=== PATIENT | male | born 1970 | race Caucasian/White ===

== ENCOUNTER 2018-08-26 09:49 | Day surgery (SDC) | payer OTHER ==
[2018-08-25 15:38] VITALS: BMI 22.4
[2018-08-26 11:55] VITALS: TEMP 98.1
[2018-08-26 12:23] VITALS: BP 102/54; PULSE 80
--- NOTE | 2018-08-27 12:30 | PATH ---
Surgical Pathology Report Patient Name: NAHUM TORRES [facility]. Rec. #: [id number] /Age/Gender: 1970 (Age: 48) / M Account: [id number] Location: [facility]-ENDOSCOPY Taken: 08/26/2018 Received: 08/26/2018 Reported: 08/27/2018 Physicians: Panfilo Lucero D.O. Specimen(s) Received A: SPLENIC FLEXURE, POLYP B: TRANSVERSE COLON, POLYP C: HEPATIC FLEXURE, POLYP D: DESCENDING COLON, POLYP Clinical History Rectal bleeding Postoperative diagnosis: Colon polyps, hemorrhoids Final Diagnosis A. SPLENIC FLEXURE, POLYP, POLYPECTOMY: TUBULAR ADENOMA. B. TRANSVERSE COLON, POLYP, POLYPECTOMY: TUBULOVILLOUS ADENOMA. C. HEPATIC FLEXURE, POLYP, POLYPECTOMY: TUBULAR ADENOMA. D. DESCENDING COLON, POLYP, POLYPECTOMY: TUBULAR ADENOMA, CAUTERIZED. Electronically Signed Eloisa Felix M.D. Gross Description A. Received in formalin, labeled "polyp splenic flexure" is a pratt, irregular portion of soft tissue measuring 0.4 cm. in greatest dimension. The specimen is submitted in toto in one cassette. B. Received in formalin, labeled "polyp transverse colon" is a pratt, polypoid portion of soft tissue measuring 0.8 cm. in greatest dimension. The specimen is submitted in toto in one cassette. C. Received in formalin, labeled "polyp hepatic flexure" are 2 pratt, irregular portions of soft tissue measuring 0.1 and 0.3 cm. in greatest dimension. The specimens are submitted in toto in one cassette. D. Received in formalin, labeled "polyp descending colon" is a pratt, irregular portion of soft tissue measuring 0.3 cm. in greatest dimension. The specimen is submitted in toto in one cassette. 08/26/2018 saudi08/26/2018
== END 2018-08-26 12:46 | disposition home or self-care (01) ==
LOC: JASU-ENDO 09:49
PROVIDERS: ATTEND Internal Medicine Gastroenterology
PROC: 0DBL8ZX Excision of Transverse Colon, Via Natural or Artificial Opening Endoscopic, Diagnostic (ICD-10-PCS; 2018-08-26)
PROC: 0DBM8ZX Excision of Descending Colon, Via Natural or Artificial Opening Endoscopic, Diagnostic (ICD-10-PCS; principal; 2018-08-26 10:15)
DX: D12.4 Benign neoplasm of descending colon (principal); D12.3 Benign neoplasm of transverse colon; K64.8 Other hemorrhoids; K92.1 Melena
CPT/HCPCS: 88305-TC

== ENCOUNTER 2019-05-31 13:33 | Emergency (ER) | payer OTHER ==
[2019-05-31 14:04] VITALS: BMI 21.0
--- NOTE | 2019-05-31 15:24 | PDOC ---
History of Present Illness - General Chief Complaint: Hemorrhoids Stated Complaint: RECTAL BLEEDING/PAIN Time Seen by Provider: 05/31/19 14:53 History Source: Patient, Family Exam Limitations: No Limitations - History of Present Illness Initial Comments: 05/31/19 15:24 Frederick Gandhi is a 48M with PMH rectal prolapse presenting with rectal pain. Patient had diarrhea 4 days HOBBER, noticed worsening rectal pain after one night. Diarrhea stopped after taking Imodium, but rectal prolapse significantly larger and more painful with pino bleeding, had to use sanitary pad to control blood. Trialled Motrin and Tylenol to no effect. Here for pain control and evaluation. Past History - Past Medical History Allergies/Adverse Reactions: Allergies Allergy/AdvReac Type Severity Reaction Status Date / Time No Known Allergies Allergy Verified 05/31/19 13:59 Home Medications: Ambulatory Orders Hydrocortisone 2.5% Topical Cr [Anusol 2.5% Hc Cream -] 1 applic RC DAILY #1 tube 05/31/19 Oxycodone HCl/Acetaminophen [Percocet 5-325 mg Tablet] 1 tab PO BID PRN #4 tablet MDD 2 05/31/19 Anemia: No Asthma: No Cancer: No Cardiac Disorders: No CVA: No COPD: No CHF: No Dementia: No Diabetes: No GI Disorders: Yes (RECTAL BLEEDING) Disorders: No HTN: No Hypercholesterolemia: Yes Liver Disease: No Seizures: No Thyroid Disease: No - Surgical History Abdominal Surgery: No Appendectomy: No Cardiac Surgery: No Cholecystectomy: No Lung Surgery: No Neurologic Surgery: No Orthopedic Surgery: No - Psycho Social/Smoking Cessation Hx Smoking History: Never smoked Have you smoked in the past 12 months: No Information on smoking cessation initiated: No Hx Alcohol Use: No Drug/Substance Use Hx: No Substance Use Type: None Hx Substance Use Treatment: No Review of Systems - Review of Systems Able to Perform ROS?: Yes Constitutional: No: Symptoms Reported HEENTM: No: Symptoms Reported Respiratory: No: Symptoms reported Cardiac (ROS): No: Symptoms Reported ABD/GI: Yes: Rectal Bleeding, Other (recal prolapse) : No: Symptoms Reported, Incontinence Musculoskeletal: No: Symptoms Reported Integumentary: No: Symptoms Reported Neurological: No: Symptoms reported Endocrine: No: Symptoms Reported Hematologic/Lymphatic: No: Symptoms Reported All Other Systems: Reviewed and Negative *Physical Exam - Vital Signs Last Vital Signs Temp Pulse Resp BP Pulse Ox 98 F 113 H 20 128/64 100 05/31/19 14:01 05/31/19 14:01 05/31/19 14:01 05/31/19 14:01 05/31/19 14:01 - Physical Exam General Appearance: Yes: Nourished, Appropriately Dressed, Apparent Distress HEENT: positive: EOMI, MONIQUE, Normal Voice, Symmetrical, Hearing Grossly Normal. negative: Scleral Icterus (R), Scleral Icterus (L) Neck: positive: Normal Thyroid, Supple. negative: Tender, Lymphadenopathy (R), Lymphadenopathy (L) Respiratory/Chest: positive: Lungs Clear, Normal Breath Sounds. negative: Chest Tender, Respiratory Distress, Accessory Muscle Use, Crackles, Rales, Rhonchi, Stridor, Wheezing Cardiovascular: positive: Regular Rhythm, Regular Rate. negative: Edema Gastrointestinal/Abdominal: positive: Normal Bowel Sounds, Flat, Soft, Other ( has Grade II rectal prolapse without bleeding, tender to palpation, reducible). negative: Tender, Organomegaly, Distended, Guarding, Rebound Musculoskeletal: positive: Normal Inspection. negative: CVA Tenderness, Vertebral Tenderness Extremity: positive: Normal Capillary Refill, Normal Inspection, Normal Range of Motion, Pelvis Stable. negative: Tender Integumentary: positive: Normal Color, Dry, Warm Neurologic: positive: Fully Oriented, Alert, Normal Mood/Affect, Normal Response Medical Decision Making - Medical Decision Making 05/31/19 15:24 Frederick Gandhi is a 48M with PMH rectal prolapse presenting with rectal pain. Patient exam shows rectal prolapse, successfully reduced with sugar and pressure. Given 10mg oxycodone for pain control. Spoke to Dr. Downs with GI service, recommends f/u in office with Dr. Lucero in the next week for further care, healthy diet. Patient requests pain medication, counseled that further opioids may cause constipation and trigger further prolapse, and cautioned to use only if in severe pain. Giving script for 4 Percocets, advised to only use if necessary. Also sending Anusol cream. Stable for discharge home with GI f/u. Discharge - Discharge Information Problems reviewed: Yes Clinical Impression/Diagnosis: Rectal prolapse Condition: Stable Disposition: HOME - Admission No - Additional Discharge Information Prescriptions: Hydrocortisone 2.5% Topical Cr [Anusol 2.5% Hc Cream -] 1 applic RC DAILY #1 tube Oxycodone HCl/Acetaminophen [Percocet 5-325 mg Tablet] 1 tab PO BID PRN #4 tablet MDD 2 PRN Reason: Severe Pain - Follow up/Referral Referrals: Lucho Velásquez MD [Primary Care Provider] - - Patient Discharge Instructions Patient Printed Discharge Instructions: DI for Rectal Prolapse Additional Instructions: Today you were evaluated for pain in your rectum. We evaluated you and found a rectal prolapse, which we successfully reduced. We gave you 10mg of oxycodone for your pain. We contacted our patient account liaison, who recommends you follow- up with Dr. Lucero's office. Please eat a diet high in fiber and stay hydrated to prevent it from happening again. Your prolapse may occur again, and if it does, we recommend you return to the emergency department for further care. Please see your patient account liaison in the next few days for further care. Please only use the Percocets if you have severe pain, as you may develop constipation that will worsen the rectal prolapse. If you experience worsening pain, diarrhea, bloody stools, abdominal pain, fever, or any other new or concerning symptoms, please return to the emergency room. - Post Discharge Activity Work/Back to School Note: Back to Work
--- NOTE | 2019-05-31 15:41 | PDOC ---
Attending Attestation - Resident Resident Name: Edmund Bruner - ED Attending Attestation I have performed the following: I have examined & evaluated the patient, The case was reviewed & discussed with the resident, I agree w/resident's findings & plan - HPI HPI: 05/31/19 15:40 48 YOM with h/o hemorrhoids, polyp s/p removal and rectal prolapse, presenting with rectal prolapse. +diarrhea x 7 episodes snce last night. no AP, n/v, f/c, cp or sob. In August 2018 was found to have mild rectal prolapse and internal nonbleeding hemorrhoids on outpatient colonoscopy, 05/31/19 16:36 05/31/19 16:38 - Physicial Exam PE: 05/31/19 16:36 Vital Signs Temp Pulse Resp BP Pulse Ox 98 F 113 H 20 128/64 100 05/31/19 14:01 05/31/19 14:01 05/31/19 14:01 05/31/19 14:01 05/31/19 14:01 Agree with the resident's HPI and PE as documented in the electronic medical record. uncomfortable appearing, EOMI, PERRL, nl conjunctiva, anicteric; neck supple. no respiratory distress, 2+ pulses, abdomen soft nontender. no rebound, guarding. Back nontender. SALDANA x4, No peripheral edema. normal color for ethnicity, WWP. +left sided external, mucosal, circumferential rectal prolapse, tender, nonbleeding, reducible no gross bleeding. +TTP 06/01/19 11:50 - Medical Decision Making 05/31/19 15:40 Vital Signs Temp Pulse Resp BP Pulse Ox 98 F 113 H 20 128/64 100 05/31/19 14:01 05/31/19 14:01 05/31/19 14:01 05/31/19 14:01 05/31/19 14:01 Vital signs notable for tachycardia, afebrile normotensive. This is likely due to the pain and discomfort. Rectal exam reveals rectal prolapse reduced with manual manipulation and sugar, edema improve analgesia GI discussion with Dr Downs, high fiber diet, supportive care and outpatient followu pwith his GI Dr Oates anusol cream, analgesia, healthy diet advised, f/u Dr Oates as outpatient. return precautions discharge stable condition, VS improved on recheck, pain controlled. 05/31/19 16:37 06/01/19 11:51
[2019-05-31] MEDS ORDERED: oxyCODONE HCL 5 MG TABLET PO ONE (16:05)
[2019-05-31] MEDS ORDERED: oxyCODONE HCL 5 MG TABLET ONE (16:24)
[2019-05-31 16:39] VITALS: BP 123/68; PULSE 85; TEMP 98
== END 2019-05-31 17:08 | disposition home or self-care (01) ==
LOC: JER 13:33
DX: K62.3 Rectal prolapse (principal); E78.00 Pure hypercholesterolemia, unspecified
CPT/HCPCS: 99281-25

== ENCOUNTER 2022-07-10 06:18 | Day surgery (SDC) | payer BC, OTHER ==
[2022-07-10] MEDS ORDERED: ONDANSETRON 4 MG/2 ML VIAL ONE (06:43)
[2022-07-10] MEDS ORDERED: morphine SULFATE 4 MG/ML VIAL ONE (06:43)
[2022-07-10 06:47] VITALS: BMI 23.8
[2022-07-10] MEDS ORDERED: LACTATED RINGERS SOLUTION 1000 ML INFUS.BAG IV ONE (06:47)
[2022-07-10] MEDS ORDERED: morphine CARPU-JECT 4 MG/1 ML DISP.SYRIN IVPUSH ONE (06:59)
[2022-07-10] MEDS ORDERED: ONDANSETRON 4 MG/2 ML VIAL IVPUSH ONE (06:59)
[2022-07-10 07:28] LABS: BASO % 0.4 % (0-2.0); EOS % 0.8 % (0-4.5); HEMATOCRIT 44.3 % (35.4-49); HEMOGLOBIN 14.8 GM/dL (11.7-16.9); LYMPH % 17.4 % (8-40); MCH 27.3 pg (25.7-33.7); MCHC 33.5 g/dl (32.0-35.9); MEAN CELL VOLUME 81.5 fl (80-96); MEAN PLT VOLUME 8.1 fl (7.5-11.1); MONO % 6.6 % (3.8-10.2); NEUT % 74.8 % (42.8-82.8); PLATELET COUNT 291 10^3/uL (134-434); RBC 5.43 M/mm3 (4.00-5.60); RDW 13.8 % (11.9-15.9); WHITE BLOOD COUNT 7.2 K/mm3 (4.0-10.0)
[2022-07-10] MEDS ORDERED: KETOROLAC TROMETHAMINE 15 MG/ML VIAL IVPUSH ONE (07:34)
[2022-07-10 07:36] LABS: INR 0.95 (0.83-1.09); PROTHROMBIN TIME (PATIENT) 10.9 SEC (9.7-13.0)
[2022-07-10 07:39] LABS: ACTIVATED PTT 27.5 SECONDS (25.2-36.5)
[2022-07-10] MEDS ORDERED: KETOROLAC TROMETHAMINE 15 MG/ML VIAL ONE (07:44)
[2022-07-10 07:46] LABS: BLOOD UREA NITROGEN 14.2 mg/dL (7-18)
[2022-07-10 07:49] LABS: CREATININE 1.3 mg/dL (0.55-1.3)
[2022-07-10 07:51] LABS: BILIRUBIN,TOTAL 0.3 mg/dL (0.2-1); TOT PROT 7.3 g/dl (6.4-8.2)
[2022-07-10 08:19] LABS: LACTIC ACID 3.1 mmol/L (0.4-2.0)
[2022-07-10 11:40] LABS: EPI CELLS 10 /uL (0-25.1); HYALINE CASTS 0 /uL (0-3.1); PH,URINE 6.5 (5.0-8.0); URINE APPEARANCE CLOUDY; URINE BACTERIA 3 /uL (0-1359); URINE BILIRUBIN NEGATIVE (NEGATIVE); URINE COLOR ORANGE; URINE GLUCOSE (UA) NEGATIVE (NEGATIVE); URINE KETONE TRACE (NEGATIVE); URINE LEUK ESTERASE TRACE (NEGATIVE); URINE NITRITE NEGATIVE (NEGATIVE); URINE PROTEIN 1+ (NEGATIVE); URINE RBC 13805 /uL (0-23.9); URINE UROBILINOGEN 0.2 mg/dL (0.2-1.0); URINE WBC 32 /uL (0-25.8)
[2022-07-10] MEDS ORDERED: KETOROLAC TROMETHAMINE 15 MG/ML VIAL IVPUSH PRN (12:59)
[2022-07-10] MEDS ORDERED: LACTATED RINGERS SOLUTION 1,000 ML IV SCH ×2 (13:00→15:45)
[2022-07-10] MEDS ORDERED: ACETAMINOPHEN 1000 MG/100 ML BAG IVPB PRN (13:02)
[2022-07-10] MEDS ORDERED: MIDAZOLAM HCL 2 MG/2 ML SINGLE DOSE VIAL ONE (15:34)
[2022-07-10] MEDS ORDERED: ONDANSETRON 4 MG/2 ML VIAL IVPUSH PRN (15:38)
[2022-07-10] MEDS ORDERED: ACETAMINOPHEN 1000 MG/100 ML BAG IVPB ONE (15:38)
[2022-07-10] MEDS ORDERED: ceFAZolin SODIUM 1 GM VIAL IVPB ONE (15:57)
[2022-07-10] MEDS ORDERED: IOHEXOL 300 MG/ML INFUS..BTL IJ ONE (16:10)
[2022-07-10] MEDS ORDERED: guaiFENesin 200 MG/10 ML 10 ML UNIT-DOSE CUPS PO ONE (19:43)
[2022-07-10] MEDS ORDERED: KETOROLAC TROMETHAMINE 30 MG/1 ML VIAL ONE (20:32)
[2022-07-10] MEDS ORDERED: ACETAMINOPHEN INJECTION 100 ML IVPB ONE (20:32)
[2022-07-10] MEDS ORDERED: SODIUM CHLORIDE FOR INHALATION 3 ML VIAL.NEB IH PRN (20:59)
[2022-07-10] MEDS ORDERED: oxyCODONE HCL 5 MG TABLET PO PRN (22:26)
[2022-07-10] MEDS ORDERED: BENZOCAINE/MENTH/CETYLPYRD CL 1 EACH LOZENGE MM PRN (22:59)
[2022-07-10] MEDS: oxyCODONE HCL 5 MG TABLET PO PRN (23:26)
[2022-07-10] MEDS: TAMSULOSIN HCL 0.4 MG CAP PO SCH (23:26)
[2022-07-11 08:24] LABS: BASO % 0.2 % (0-2.0); HEMATOCRIT 36.9 % (35.4-49); HEMOGLOBIN 12.1 GM/dL (11.7-16.9); LYMPH % 6.7 % (8-40); MCH 26.9 pg (25.7-33.7); MCHC 32.8 g/dl (32.0-35.9); MEAN CELL VOLUME 81.9 fl (80-96); MEAN PLT VOLUME 8.4 fl (7.5-11.1); MONO % 6.2 % (3.8-10.2); NEUT % 86.9 % (42.8-82.8); PLATELET COUNT 241 10^3/uL (134-434); RDW 13.9 % (11.9-15.9); WHITE BLOOD COUNT 15.6 K/mm3 (4.0-10.0)
[2022-07-11 08:44] LABS: CALCIUM 8.2 mg/dL (8.5-10.1)
[2022-07-11 08:45] LABS: BLOOD UREA NITROGEN 15.5 mg/dL (7-18)
[2022-07-11 08:46] LABS: MAGNESIUM 1.9 mg/dL (1.8-2.4)
[2022-07-11 08:48] LABS: CREATININE 1.2 mg/dL (0.55-1.3); PHOSPHOROUS 3.5 mg/dL (2.5-4.9)
[2022-07-11] MEDS: TAMSULOSIN HCL 0.4 MG CAP PO SCH (10:10)
[2022-07-11] MEDS: oxyCODONE HCL 5 MG TABLET PO PRN (13:01)
[2022-07-11 19:52] VITALS: BP 117/71; PULSE 126; RESP 24; TEMP 100.2
== END 2022-07-11 19:53 | disposition left against medical advice (07) ==
LOC: JER 06:18 → UNDOADMOB 12:16 → JASUSAT 12:16 → JERBED 12:16 → OBSVTOIN 17:58 → INTOOBSV 17:58 → J4S 22:48 → JERBED 22:48 → JASUSAT 07-11 19:53
PROVIDERS: ATTEND Internal Medicine
PROC: 0T768DZ Dilation of Right Ureter with Intraluminal Device, Via Natural or Artificial Opening Endoscopic (ICD-10-PCS; 2022-07-10)
PROC: 0TC68ZZ Extirpation of Matter from Right Ureter, Via Natural or Artificial Opening Endoscopic (ICD-10-PCS; principal; 2022-07-10 14:00)
DX: N20.1 Calculus of ureter (principal); N13.30 Unspecified hydronephrosis
CPT/HCPCS: 36415; 71045-TC-FY; 74176-TC; 76000-TC-FY; 76870-TC; 80048; 80053; 81003; 83605; 83690; 83735; 84100; 85025; 85610; 85730; 86850; 86900; 86901; 87086; 87491; 87591; 93005; 93010; 94010; 94760; 99285-25; C1758; C2617; C9803-CS; G0378; U0003; U0005

== ENCOUNTER 2022-09-11 05:02 | Day surgery (SDC) | payer BC ==
[2022-09-10 13:33] VITALS: BMI 22.8
[2022-09-11] MEDS ORDERED: MIDAZOLAM HCL 2 MG/2 ML SINGLE DOSE VIAL ONE ×2 (09:40→09:53)
[2022-09-11] MEDS ORDERED: ceFAZolin SODIUM 1 GM VIAL IVPB ONE (09:47)
[2022-09-11 10:23] VITALS: RESP 18
[2022-09-11 11:44] VITALS: BP 121/74; PULSE 76; TEMP 98.8
== END 2022-09-11 11:30 | disposition home or self-care (01) ==
LOC: JASU-SURG 05:02
PROVIDERS: ATTEND Urology
PROC: 0TF3XZZ Fragmentation in Right Kidney Pelvis, External Approach (ICD-10-PCS; principal; 2022-09-11 09:00)
DX: N20.0 Calculus of kidney (principal)